=== PATIENT | female | born 1970 | race American Indian/Alaskan Native ===

== ENCOUNTER 2021-03-04 18:46 | Emergency (ER) | payer MEDICAID ==
[2021-03-04 18:51] VITALS: BP 133/62
--- NOTE | 2021-03-04 21:58 | Emergency Department Report ---
HPI - General Chief Complaint: Arrhythmia/Palpitations Time Seen by Provider: 03/04/21 20:29 - HPI HPI: 50-year-old -Turk[place] female presents to the emergency department with complaint of developing some generalized chest heaviness at around 6 PM followed by some palpitations feeling as if her heart is skipping a beat and going fast. Then, around the same time, the patient felt as if she was going to pass out. The patient has a past medical history of mitral valve prolapse and sleep apnea. She did not take anything for symptoms prior to presentation. She has a business development specialist, Dr. Kenia Skinner, that she saw about 1 month ago. She showed me some recent labs that she had including a normal-appearing CBC, TSH level, metabolic panel. No recent travel or sick contacts at home. The patient is a former smoker having quit about 2 years ago. At the time of my examination the patient says that she is feeling improved. ED Review of Systems ROS: Stated complaint: RAPID HEART RATE Other details as noted in HPI Comment: All other systems reviewed and negative Constitutional: denies: chills, fever Eyes: denies: eye pain, vision change ENT: denies: ear pain, throat pain Respiratory: denies: cough, shortness of breath Cardiovascular: chest pain, palpitations Gastrointestinal: denies: abdominal pain, vomiting Genitourinary: denies: dysuria, discharge Musculoskeletal: denies: back pain, arthralgia Skin: denies: rash, lesions Neurological: denies: headache, weakness Physical Exam - Physical Exam Vital Signs: Vital Signs 03/04/21 18:50 Temperature 98.6 F Pulse Rate 72 Respiratory 18 Rate Blood Pressure 133/62 [Right] O2 Sat by Pulse 100 Oximetry Physical Exam: GENERAL: The patient is well-developed well-nourished. HENT: Normocephalic. Atraumatic. Patient has moist mucous membranes. EYES: Extraocular motions are intact. NECK: Supple. Trachea is midline. CHEST/LUNGS: Clear to auscultation. There is no respiratory distress noted. HEART/CARDIOVASCULAR: Regular. There is no tachycardia. There is no murmur. ABDOMEN: Abdomen is soft, nontender. Patient has normal bowel sounds. SKIN: Skin is warm and dry. NEURO: The patient is awake, alert, and oriented. The patient is cooperative. The patient has no focal neurologic deficits. Normal speech. MUSCULOSKELETAL: There is no tenderness or deformity. There is no limitation range of motion. ED Course Vital Signs 03/04/21 18:50 Temperature 98.6 F Pulse Rate 72 Respiratory 18 Rate Blood Pressure 133/62 [Right] O2 Sat by Pulse 100 Oximetry ED Medical Decision Making - Lab Data Result diagrams: 03/04/21 21:58 Lab Results 03/04/21 Range/Units 21:58 Sodium 136 L (137-145) mmol/L Potassium 4.4 (3.6-5.0) mmol/L Chloride 102.2 (98-107) mmol/L Carbon Dioxide 22 (22-30) mmol/L Anion Gap 16 mmol/L BUN 14 (7-17) mg/dL Creatinine 0.7 (0.6-1.2) mg/dL Estimated GFR > 60 ml/min BUN/Creatinine Ratio 20 % Glucose 138 H (65-100) mg/dL Calcium 9.2 (8.4-10.2) mg/dL Magnesium 1.90 (1.7-2.3) mg/dL Troponin T < 0.010 (0.00-0.029) ng/mL - EKG Data -: EKG Interpreted by Me EKG shows normal: sinus rhythm, axis, intervals, QRS complexes, ST-T waves Rate: normal - EKG Data When compared to previous EKG there are: previous EKG unavailable Interpretation: normal EKG - Radiology Data Radiology results: image reviewed interpreted by me: Chest x-ray does not show any acute process. There are no pleural effusions, obvious pneumonia and there is no pneumothorax. No widened mediastinum. - Medical Decision Making This patient presents to the emergency department with a complaint of having some chest heaviness and palpitations prior to presentation, as well as feelings of near syncope. However, at the time of my examination, the patient is asymptomatic. Heart and lung sounds are normal to auscultation and she does not appear in any respiratory or acute distress. She does not have any focal, motor or sensory deficits and cranial nerves are intact. EKG does not show any morphology consistent with ST elevation myocardial infarction or any arrhythmia. Chest x-ray does not show any pneumonia, pleural effusions, pneumothorax, widened mediastinum, or any other acute process. The patient had some recent negative labs that she showed me through [facility]. I repeated a metabolic panel and got a troponin level, and both of these resulted as unremarkable. She was reevaluated multiple times over multiple hours in this emergency department and there has been no return of her symptoms. She has good outpatient follow-up with primary care and cardiology. Critical care attestation.: If time is entered above; I have spent that time in minutes in the direct care of this critically ill patient, excluding procedure time. ED Disposition Clinical Impression: Palpitations, Atypical chest pain Disposition: HOME / SELF CARE / HOMELESS Is pt being admited?: No Condition: Stable Instructions: Nonspecific Chest Pain, Adult Additional Instructions: Please follow-up with your primary care physician and business development specialist. Try to avoid alcohol or excessive caffeine use. Try to get 8 hours of uninterrupted sleep at night. Take all medications as prescribed. Return to the emergency department with any worsening of your symptoms, new or concerning symptoms not addressed during this current emergency department visit, or with any acute distress. Referrals: PRIMARY CARE, [Primary Care Provider] - 2-3 Days [facility] [employer] Supervisor, Your [Other] - 2-3 Days Forms: Work/School Release Form(ED) Time of Disposition: 22:50 Heart Score - HEART Score History: Slightly suspicious EKG: Normal Age: 45-65 Risk factors: No known risk factors Troponin: < normal limit HEART Score: 1 - EKG Read Time Time EKG Completed: 18:54 EKG Read Time: 18:59
[2021-03-04 22:26] LABS: Blood Urea Nitrogen 14 mg/dL (7-17); Calcium 9.2 mg/dL (8.4-10.2); Hemolysis Index 4
[2021-03-04 22:33] LABS: BUN/Creatinine Ratio 20
--- NOTE | 2021-03-05 07:15 | XRay Report ---
XR chest routine 2V INDICATION / CLINICAL INFORMATION: CP, palpitations. COMPARISON: None available. FINDINGS: SUPPORT DEVICES: None. HEART /PULMONARY VASCULATURE: No significant abnormality. LUNGS / PLEURA: No significant pulmonary or pleural abnormality. No pneumothorax. ADDITIONAL FINDINGS: No significant additional findings. IMPRESSION: 1. No acute findings. Signer Name: Petey Mello MD Signed: 03/05/2021 7:10 AM Workstation Name: [id number]
--- NOTE | 2021-03-07 14:17 | Electrocardiograph Report ---
[facility] Test Date: 2021-03-04 Test Time: 18:54:46 Pat Name: BENJAMIN VILLAREAL Department: Room: Gender: F [employer]: terra : 1970 Requested By: SHARRI ROJAS Order Number: [id number] Reading MD: Esdras Khalil Measurements Intervals [place] Rate: 71 P: 77 ND: 175 QRS: 66 QRSD: 86 T: 58 QT: 378 QTc: 412 Interpretive Statements Sinus rhythm No previous ECG available for comparison Electronically Signed On 03-07-2021 14:17:23 EST by Esdras Khalil
== END 2021-03-04 22:57 | disposition home or self-care (01) ==
LOC: ED 18:46
DX: R00.2 Palpitations (principal); R07.89 Other chest pain
CPT/HCPCS: 36415; 71046; 80048; 83735; 84484; 93005; 99283